=== PATIENT | male | born 1960 | race Caucasian/White ===

== ENCOUNTER 2019-11-20 18:25 | Emergency (ER) | payer MEDICAID, OTHER ==
[~2019-11-20] VITALS: Ht 180.3 cm; Wt 90.7 kg
[2019-11-20 19:37] LABS: Hematocrit 42.6 % (41.0-53.0); Hemoglobin 14.2 g/dL (13.5-17.5); Mean Corpuscular Hemoglobin 33.1 pg (28.0-32.0); Mean Corpuscular Hgb Conc. 33.3 g/dL (32.0-36.0); Mean Corpuscular Volume 99.2 fL (80.0-100.0); Platelet Count (auto) 253 10^3/uL (140-450); Red Cell Distribution Width 14.1 % (11.8-14.3); White Blood Cell 15.1 10^3/uL (4.4-10.8)
[2019-11-20 19:41] LABS: Basophils % (manual) 0 (0.0-2.0); Blast Cells 0; Metamyelocytes % 0; Myelocytes % 0; Promyelocytes % 0; Reactive Lymphocytes 0
[2019-11-20 19:55] LABS: INR 0.96 (0.9-1.15); Partial Thromboplastin Time 23.9 sec (23.64-32.05)
[2019-11-20 19:56] LABS: Albumin 4.3 g/dL (3.4-5.0); Anion Gap 9 (5-15); Band Neutrophils % (manual) 8; Blood Urea Nitrogen 29 mg/dL (7-18); Calcium 9.2 mg/dL (8.5-10.1); Carbon Dioxide 21 mmol/L (21-32); Chloride 109 mmol/L (98-107); Eosinophils % (manual) 2 (0-7); Glucose 178 mg/dL (74-106); Lipase 60 U/L (73-393); Lymphocytes % (manual) 9 (10.0-50.0); Magnesium 2.1 mg/dL (1.6-2.6); Monocytes % (manual) 1 (0-12); Potassium 4.3 mmol/L (3.5-5.1); Sodium 139 mmol/L (136-145)
[2019-11-20 19:57] LABS: Alanine Aminotransferase 35 U/L (16-61); Amylase 66 U/L (25-115); Aspartate Aminotransferase 22 U/L (15-37); BUN/Creatinine Ratio 15.3; Blood Alcohol < 3.0 mg/dL (0-5); GFR African American 47 mL/min; GFR Non-African American 39 mL/min
[2019-11-20 20:00] LABS: Alkaline Phosphatase 71 U/L (45-117); Bilirubin, Total 0.9 mg/dL (0.2-1.0)
[2019-11-20] MEDS ORDERED: metroNIDAZOLE 500 MG TAB PO ONE (23:45)
[2019-11-20] MEDS ORDERED: SODIUM CHLORIDE 0.9% 1,000 ML IV ONE (23:45)
[2019-11-20] MEDS ORDERED: CIPROFLOXACIN HCL 500 MG TAB PO ONE (23:45)
[2019-11-20] MEDS ORDERED: ONDANSETRON HCL 4 MG/2 ML VIAL IV ONE (23:45)
[2019-11-21 02:25] VITALS: BP 96/59
== END 2019-11-21 02:37 | disposition home or self-care (01) ==
LOC: ER 18:25
DX: K29.00 Acute gastritis without bleeding (principal); K55.059 Acute (reversible) ischemia of intestine, part and extent unspecified; E11.9 Type 2 diabetes mellitus without complications; I10 Essential (primary) hypertension
CPT/HCPCS: 36415; 71250; 74176; 80053; 80320; 82140; 82150; 83605; 83690; 83735; 84484; 85007; 85027; 85610; 85730; 87040; 93005; 96360; 99285; J7030